=== PATIENT | female | born 2000 | race Caucasian/White ===

== ENCOUNTER 2021-05-01 12:37 | Outpatient (REF) | payer BC, SELFPAY ==
[2021-05-01 14:55] LABS: Binax Internal Control QC Valid; Binax Lot number: 9864; Binax Now Covid-19 Ag Negative (Negative)
== END 2021-05-01 12:38 | disposition home or self-care (01) ==
LOC: HO.LAB 12:37
PROVIDERS: Visit Provider Internal Medicine
DX: Z20.822 Contact with and (suspected) exposure to COVID-19 (principal)
CPT/HCPCS: C9803

== ENCOUNTER → 2023-08-17 14:13 | Outpatient (BNVA) | payer SELFPAY | PROVIDERS: PCP Pediatrics | DX: R76.11 Nonspecific reaction to tuberculin skin test without active tuberculosis (principal) ==

== ENCOUNTER → 2023-11-10 07:57 | Outpatient (BNVA) | payer SELFPAY | PROVIDERS: PCP Pediatrics | DX: Z02.83 Encounter for blood-alcohol and blood-drug test (principal) ==

== ENCOUNTER → 2024-08-17 09:43 | Outpatient (BNVA) | payer SELFPAY | PROVIDERS: PCP Pediatrics | DX: Z02.89 Encounter for other administrative examinations (principal) ==

== ENCOUNTER → 2024-08-30 14:56 | Outpatient (BNVA) | payer SELFPAY | PROVIDERS: PCP Pediatrics | DX: R76.11 Nonspecific reaction to tuberculin skin test without active tuberculosis (principal) ==